=== PATIENT | male | born 1965 | race Native Hawaiian/Other Pacific Islander ===

== ENCOUNTER → 2017-02-11 | Day surgery (SDC) | payer BC ==
[~2017-02-11] MED LIST: BUPIVACAINE HCL PF 0.75% 30 ML VIAL ONE; LACTATED RINGER'S 1,000 ML BAG IV ONE; LACTATED RINGER'S 1000 ML INJ 1,000 ML ONE; LIDOCAINE 1.5%/EPINEPHrine 1:200,000 PF SOLN 30 ML AMP NERV BLOCK ONE; MIDAZOLAM HCL 5 MG/ML VIAL (1 ML) ONE; ONDANSETRON HCL 4 MG/2 ML VIAL IV PUSH ONE; PROPOFOL 200 MG/20 ML AMP IV ONE; ceFAZolin 2 GM PREMIX 50 ML ONE
--- NOTE | 2017-02-12 10:40 | MP ---
cc: SANTA JULIEN M.D. DATE OF SURGERY 02/11/2017 PREOPERATIVE DIAGNOSIS Left shoulder very large rotator cuff tear and impingement syndrome with a history of prior rotator cuff repair. POSTOPERATIVE DIAGNOSIS Left shoulder very large rotator cuff tear and impingement syndrome with a history of prior rotator cuff repair. PROCEDURE Left shoulder arthroscopic revision rotator cuff repair using [employer] speed bridge technique. ANESTHESIA Interscalene block and general SURGEON Santa Julien MD DIETITIAN CHIEF SURGEON MACEY Rowe ESTIMATED BLOOD LOSS Minimal DRAINS None SPECIMEN None COMPLICATIONS None known INDICATION Devante Valadez is an adult male who has a history rotator cuff repair about 10 years ago who had good function of his shoulder until he sustained a significant traumatic fall with significant weakness and disability of the shoulder and workup has revealed a very large rotator cuff tear. He is not seeing any improvement with conservative management on his own. He is indicated for revision surgery. It is a very big tear. He understands that there are no guarantees. The risks and benefits were thoroughly discussed and a detailed informed consent was obtained. PROCEDURE The patient was brought into the operating room. He was placed under general anesthetic. An interscalene block had previously been given in the preop holding area. He was turned into the lateral decubitus position left shoulder up. The left shoulder was prepped and draped in the usual sterile fashion. IV antibiotics were given. Time-out was completed. It should be noted that the first mate, Real Olivarez, who is an advanced registered nurse practitioner, whose skill set was medically necessary for the performance of the operation. We used a three portal technique, one portal posteriorly in the soft spot, one direct lateral and one anterolateral corner of the acromion. Blunt trocar was used to introduce the cannula. The biceps tendon appeared normal. There was some mild fraying of the superior labrum. There was some mild chondromalacia on the superior aspect of the humeral head grade 2. Inferiorly, the articular cartilage, posterior labrum and glenoid all looked very good. Looking upward, we saw a very large tear. We saw the prior suture anchors from the old repair. We proceeded to clean this all up as much as we could with the arthroscopic shaver and take out scar tissue in the subacromial space and released the deep capsular layer medial to the superior labrum and mobility of the cuff markedly improved as we did this. We brought this to good bleeding bone. As was noted in the preop assessment of the MRI, it did look like a reverse L configuration and we proceeded to do [id number] stitches posteriorly and we had good bleeding bone at the footprint of the infraspinatus and supraspinatus. We identified an anterior acromial spur and performed anterior acromionectomy with follow-up photograph showing pre and post. We then proceeded with a speed bridge technique. On the anterior anchor, we had two add additional sutures for a dog ear and on the posterior anchor, we had one additional suture for a dog ear that was all tack down in a knotless fashion with the lateral row anchors. Excellent final recreation of the rotator cuff footprint and the repair looked very solid. Final photograph shows this result. Hemostasis was very good. The arthroscopic equipment was removed. The knee was then closed with absorbable sutures. Steri-Strips on the skin. An ultra sling was applied. The patient was awoken and returned to the recovery room in stable condition. MD RACHEL Galnido/VANNESSA /12:30 PM /10:32 AM
== END | disposition home or self-care (01) ==
LOC: ESDC 07:20
PROVIDERS: ATTEND Orthopaedic Surgery Sports Medicine
DX: S46.012A Strain of muscle(s) and tendon(s) of the rotator cuff of left shoulder, initial encounter (principal); M75.42 Impingement syndrome of left shoulder; W18.30XA Fall on same level, unspecified, initial encounter
CPT/HCPCS: 01630; 01991; 29827; 64417; C1713; J0690; J2250; J2405; J7120